=== PATIENT | female | born 1970 | race Two or more races ===

== ENCOUNTER 2025-02-23 10:05 | Inpatient (IN) | payer MEDICAID, OTHER ==
[~2025-02-23] VITALS: Ht 172.7 cm; Wt 68.9 kg
--- NOTE | 2025-02-23 10:20 | ECG ---
[facility] Test Date: 2025-02-23 Test Time: 10:19:53 Pat Name: MIL MIRANDA Department: ED Room: 0251 Gender: F Civil Estimator: GP : 1970 Requested By: SHAHID GALARZA Order Number: [id number] Reading MD: Emiliano Caballero Measurements Intervals [place] Rate: 85 P: 26 [place]: 138 QRS: 19 QRSD: 95 T: 50 QT: 411 QTc: 489 Interpretive Statements Sinus rhythm Left atrial enlargement RSR' in V1 or V2, probably normal variant Borderline prolonged QT interval Electronically Signed On 02-25-2025 19:43:56 PST by Emiliano Caballero Please click the below link to view image of tracing.
--- NOTE | 2025-02-23 11:02 | ED.PDOC ---
GI ASSESSMENT HPI Comments 54y F who presents to the ED via EMS for chief complaint of abdominal pain. Pt states she has been having nausea and vomiting for the past 5 days. Pt states she has had nausea, vomiting, lightheadedness and generalized malaise. Pt states she feels like she is going to fall over from her weakness. Pt denies any sick contacts or any changes to diet. Pt otherwise has stable vitals in the ED. Pt denies any other symptoms at this time. Chief Complaint: Nausea/Vomiting Time Seen by MD: 10:58 Reviewed Notes: Medications, Allergies Allergies: Coded Allergies: NO KNOWN ALLERGIES (Unverified , 02/23/25) Information Source: Patient, Emergency Med Personnel Mode of Arrival: EMS Brought in by: EMS Timing: Days Duration: Since onset Prehospital treatment: Treatment (zofran) Quality: Aching Past Medical History PAST MEDICAL HISTORY: COPD, Depression Past Medical History (Other): low blood pressure Surgical History: Denies all surgeries BIOASSAYIST History: Denies all BIOASSAYIST Hx Family History Family History: Reviewed,noncontributory to illness Social History Smoker: Non-Smoker Alcohol: Denies ETOH Use Drugs: Denies Drug Use Lives In: Home Constitutional: reports: malaise, weakness; denies: chills, diaphoresis, fatigue, fever, sweats, others EENTM: denies: blurred vision, double vision, ear bleeding, ear discharge, ear drainage, ear pain, ear ringing, eye pain, eye redness, hearing loss, mouth pain, mouth swelling, nasal discharge, nose bleeding, nose congestion, nose pain, photophobia, tearing, throat pain, throat swelling, voice changes, others Respiratory: denies: cough, hemoptysis, orthopnea, SOB at rest, shortness of breath, SOB with excertion, stridor, wheezing, others Cardiovascular: denies: chest pain, dizzy spells, diaphoresis, Dyspnea on exer tion, edema, irregular heart beat, left arm pain, lightheadedness, palpitations, PND, syncope, others Gastrointestinal: reports: nausea, vomiting; denies: abdomen distended, abdominal pain, blood streaked bowels, constipated, diarrhea, dysphagia, difficulty swallowing, hematemesis, melena, poor appetite, poor fluid intake, rectal bleeding, rectal pain, others Genitourinary: denies: abnormal vagina bleeding, burning, dyspareunia, dysuria, flank pain, frequency, hematuria, incontinence, pain, , vagina discharge, urgency, others Neurological: denies: dizziness, fainting, headache, left sided numbness, left sided weakness, numbness, paresthesia, pre-existing deficit, right sided numbness, right sided weakness, seizure, speech problems, tingling, tremors, weakness, others Musculoskeletal: denies: back pain, gout, joint pain, joint swelling, muscle pain, muscle stiffness, neck pain, others Integumetry: denies: bruises, change in color, change in hair/nails, dryness, laceration, lesions, lumps, rash, wounds, others Allergic/Immunocompromised: denies: Difficulty Healing, Frequent Infections, Hives, Itching, others Hematologic/Lymphatic: denies: anemia, blood clots, easy bleeding, easy bruising, swollen glands, others Endocrine: denies: excessive hunger, excessive sweating, excessive thirst, excessive urination, flushing, intolerance to cold, intolerance to heat, unexplained weight gain, unexplained weight loss, others Psychiatric: denies: anxiety, bipolar disorder, depression, hopeless, panic disorder, schizophrenia, sleepless, suicidal, others All Other Systems: Reviewed and Negative Physical Exam General Appearance: No Apparent Distress, Normal HEENT: Normal ENT Inspection, Pharynx Normal, TMs Normal Neck: Full Range of Motion, Non-Tender, Normal, Normal Inspection Respiratory: Chest Non-Tender, Lungs Clear, No Accessory Muscle Use, No Respiratory Distress, Normal Breath Sounds Cardiovascular: No Edema, No JVD, No Murmur, No Gallop, Normal Peripheral Pulses, Regular Rate/Rhythm Breast Exam: Deferred Gastrointestinal: No Organomegaly, Non Tender, No Pulsatile Mass, Normal Bowel Sounds, Soft Genitalia: Deferred Pelvic: Deferred Rectal: Deferred Extremities: No calf tenderness, Normal capillary refill, Normal inspection, Normal range of motion, Non-tender, No pedal edema Musculoskeletal : Apperance: Normal Neurologic: Alert, product marketing director II-XII nml as Tested, No Motor Deficits, Normal Affect, Normal Mood, No Sensory Deficits Cerebellar Function: Normal Reflexes: Normal Skin: Dry, Normal Color, Warm Lymphatic: No Adenopathy EKG EKG : Pulse Rate (adult): 85 Cardiac Rhythm: NSR Comments No signs of ischemia, no STEMI. Was a procedure done? Was a procedure done?: No GI differential Dx Differential Diagnosis: Gastritis/PUD, Gastroenteritis, Pancreatitis, UTI, Dehydration, Food Poisoning, Bacterial, Viral X-Ray, Labs, Meds, VS Vital Signs Date Time Temp Pulse Resp B/P (MAP) Pulse Ox O2 Delivery O2 Flow Rate FiO2 02/23/25 10:54 97.9 89 18 118/80 (93) 92 97.9 02/23/25 10:19 85 02/23/25 10:08 98.4 88 16 155/75 92 98.4 Lab Test 02/23/25 12:29 02/23/25 12:18 02/23/25 11:13 Range/Units Urine Color Yellow Yellow Urine Clarity Clear Clear Urine pH 6.0 5.0-9.0 Urine Specific [place] 1.023 1.001-1.035 Urine Protein Trace H Negative Urine Ketones 1+ H Negative Urine Blood 1+ H Negative /uL Urine Nitrite Negative Negative Urine Bilirubin Negative Negative Urine Urobilinogen 2 H Negative mg/dL Urine Leukocyte Esterase 1+ Negative /uL Urine RBC 8 0 - 4 /hpf Urine Microscopic WBC 5 0-5 /HPF Urine Squamous Epithelial Cells Few <5 /hpf Urine Bacteria None seen None Seen /hpf Urine Mucus Few None Seen Urine Yeast (Budding) Occasional None Seen /hpf Urine Glucose Normal Normal mg/dL Troponin I High Sensitivity 20 27 </=34 ng/L White Blood Count 11.4 H 4.4-10.8 10^3/uL Red Blood Count 4.60 4.0-5.20 10^6/uL Hemoglobin 12.5 12.2-16.2 g/dL Hematocrit 37.2 36.0-46.0 % Mean Corpuscular Volume 81.0 80.0-100.0 fL Mean Corpuscular Hemoglobin 27.2 L 28.0-32.0 pg Mean Corpuscular Hemoglobin Concent 33.6 32.0-36.0 g/dL Red Cell Distribution Width 13.4 11.8-14.3 % Platelet Count 283 140-450 10^3/uL Mean Platelet Volume 8.3 6.9-10.8 fL Neutrophils (%) (Auto) 79.5 37.0-80.0 % Lymphocytes (%) (Auto) 8.0 L 10.0-50.0 % Monocytes (%) (Auto) 11.1 0.0-12.0 % Eosinophils (%) (Auto) 1.0 0.0-7.0 % Basophils (%) (Auto) 0.4 0.0-2.0 % Neutrophils # (Auto) 9.1 H 1.6-8.6 10 ^3/uL Lymphocytes # (Auto) 0.9 0.4-5.4 10 ^3/uL Monocytes # (Auto) 1.3 0-1.3 10 ^3/uL Eosinophils # (Auto) 0.1 0-0.8 10 ^3/uL Basophils # (Auto) 0 0-0.2 10 ^3/uL Nucleated Red Blood Cells 0.0 % Sodium Level 139 136-145 mmol/L Potassium Level 3.4 L 3.5-5.1 mmol/L Chloride Level 99 98-107 mmol/L Carbon Dioxide Level 32 H 20-31 mmol/L Anion Gap 8 5-15 Blood Urea Nitrogen 8 L 9-23 mg/dL Creatinine 0.90 0.550-1.02 mg/dL Glomerular Filtration Rate Calc 76 >90 mL/min BUN/Creatinine Ratio 8.9 L 10.0-20.0 Serum Glucose 97 74-106 mg/dL Calcium Level 9.4 8.7-10.4 mg/dL B-Type Natriuretic Peptide 46.15 0-100 pg/mL Lipase 23 12-53 U/L [place] [address] Ph: [phone] DIAGNOSTIC IMAGING Diagnostic Imaging Report : [id number] Signed PATIENT: LAURA MIRANDA ACCT: [id number] UNIT: [id number] : 1970 LOC: ER ROOM / BED: / AGE / SEX: 54 / F ADM STATUS: REG ER SERVICE 1101 ORDERING PHYSICIAN: SHAHID GALARZA MD PROCEDURE(s): CXR1 - CHEST XRAY 1 VIEW REASON: chest pain ORDER NUMBER(s): [id number], ACCESSION NUMBER(s): [id number] CLINICAL HISTORY: Chest pain. TECHNIQUE: Two frontal views of the chest were obtained. COMPARISON: None available. FINDINGS: PLEURA/LUNGS: Questionable trace bilateral pleural effusions associated with subsegmental atelectasis at the lung bases. No pneumothorax. No consolidation or belinda pulmonary edema. MEDIASTINUM/OTHER: Normal heart size and mediastinal contours. BONES: No acute osseous abnormality. Osseous structures are demineralized. IMPRESSION: Questionable trace bilateral pleural effusions associated with subsegmental atelectasis at the lung bases. ATED BY: HE MCNEAL MD DICTATED DATE/TIME: 02/23/25 1146 SIGNED BY: HE MCNEAL MD SIGNED DATE/TIME: 02/23/25 1146 CC: X-Ray, Labs, Meds, VS Comment Patient presents with a constellation of symptoms with positive UA that likely represents acute pyelonephritis. Given fluid bolus and ceftriaxone based on previously available culture data. Patient is at high risk for decompensation and will be admitted for continued IV antibiotics, observation, and culture results. Considered nephrolithiasis, obstructed stone, atypical appendicitis, AAA, aortic dissection, genital torsion, cholecystitis, but consider these to be less likely based on history/physical/evaluation as above. Images Reviewed?: Images reviewed and evaluated by me Time of 1ST Reevaluation: 11:30 Reevaluation 1ST: Unchanged Time of 2ND Reevaluation: 14:52 Reevaluation 2ND: Improved Patient Education/Counseling: Diagnosis, Treatment Family Education/Counseling: No Family Present SEPSIS Sepsis Screen Date sepsis recognized/suspect: Feb 23, 2025 Time Sepsis recognized/suspect: 1008 Recent Procedure: No On Antibiotic Therapy: No Respiratory Rate >20: No Heart Rate >90: No Temp<36 C (96.8 F) or >38.3 C: No SBP <90 or MAP <65 mmHG: No New Acute Mental Status Change: No Is the patient on CPAP, BIPAP,: No Physician Orders Chest Xray 1 View (02/23/25 11:01) Electrocardigram (02/23/25 11:01) Troponin-I Hs (02/23/25 14:01) Electrocardigram (02/23/25 12:01) Electrocardigram (02/23/25 14:01) Vital Signs Date Time Temp Pulse Resp B/P (MAP) Pulse Ox O2 Delivery O2 Flow Rate FiO2 02/23/25 10:54 97.9 89 18 118/80 (93) 92 97.9 02/23/25 10:19 85 12/9/25 10:08 98.4 88 16 155/75 92 98.4 Laboratory Tests Test 02/23/25 11:13 White Blood Count 11.4 10^3/uL (4.4-10.8) H Departure 1 Departure Time of Disposition: 14:52 Impression: Primary Impression: Pyelonephritis Disposition: 02 SHORT TERM HOSPITAL Admit to: Tele Condition: Stable Critical Care Note Critical Care Time?: Yes (35 min-critical care time only) Stability Stability form required: No Heart Score Heart Score: Heart Score Response (Comments) Value History N/A 0 EKG N/A 0 Age N/A 0 Risk Factors N/A 0 Troponin N/A 0 Total 0 I personally scribed for SHAHID GALARZA MD ([facility]) on 02/23/25 at 11:02. Electronically submitted by Leandra Rodarte ([facility] [employer] I personally scribed for SHAHID GALARZA MD ([email or web address]) on 02/23/25 at 13:17. Electronically submitted by Leandra Rodarte ([facility]). SHAHID GALARZA MD Feb 23, 2025 11:02
[2025-02-23 11:34] LABS: Hematocrit 37.2 % (36.0-46.0); Hemoglobin 12.5 g/dL (12.2-16.2); Mean Corpuscular Hemoglobin 27.2 pg (28.0-32.0); Mean Corpuscular Volume 81.0 fL (80.0-100.0); Nucleated Red Blood Cells % 0.0 %
[2025-02-23 11:49] LABS: Chloride 99 mmol/L (98-107); Sodium 139 mmol/L (136-145)
--- NOTE | 2025-02-23 11:49 | DVH ---
CLINICAL HISTORY: Chest pain. TECHNIQUE: Two frontal views of the chest were obtained. COMPARISON: None available. FINDINGS: PLEURA/LUNGS: Questionable trace bilateral pleural effusions associated with subsegmental atelectasis at the lung bases. No pneumothorax. No consolidation or belinda pulmonary edema. MEDIASTINUM/OTHER: Normal heart size and mediastinal contours. BONES: No acute osseous abnormality. Osseous structures are demineralized. IMPRESSION: Questionable trace bilateral pleural effusions associated with subsegmental atelectasis at the lung bases.
[2025-02-23 11:50] LABS: Anion Gap 8 (5-15)
[2025-02-23 11:51] LABS: Calcium 9.4 mg/dL (8.7-10.4)
[2025-02-23 11:53] LABS: Carbon Dioxide 32 mmol/L (20-31); Potassium 3.4 mmol/L (3.5-5.1)
[2025-02-23 11:56] LABS: BUN/Creatinine Ratio 8.9 (10.0-20.0); Glucose 97 mg/dL (74-106)
[2025-02-23 11:58] LABS: Blood Urea Nitrogen 8 mg/dL (9-23)
[2025-02-23 13:43] LABS: Urine Budding Yeast OCCASIONAL /hpf (None Seen); Urine Protein, UAD TRACE (Negative)
[2025-02-23] MEDS: SODIUM CHLORIDE 0.9% 1,000 ML IV SCH (15:45)
[2025-02-23] MEDS ORDERED: ONDANSETRON HCL 4 MG/2 ML VIAL IV PRN ×2 (15:45)
[2025-02-23] MEDS ORDERED: ACETAMINOPHEN 325 MG TAB PO PRN (15:45)
[2025-02-23] MEDS: SODIUM CHLORIDE 0.9% 1,000 ML IV ONE (15:52)
[2025-02-23 16:26] LABS: Alanine Aminotransferase 11.0 U/L (7-40); Albumin 4.4 g/dL (3.2-4.8); Alkaline Phosphatase 72.0 U/L (46-116); Bilirubin, Direct 0.1 mg/dL (<0.3); Bilirubin, Total 0.5 mg/dL (0.2-1.0)
--- NOTE | 2025-02-23 16:43 | DVHHP2 ---
History of Present Illness History of Present Illness This is a 54-year-old female with past medical history of depression who presents with five days of epigastric abdominal pain associated with nausea and multiple episodes of non-bloody clear vomiting, last episode yesterday. She reports lightheadedness and generalized weakness without syncope. No sick contacts or dietary changes. She had a prior hysterectomy and in outside meds reconciliation aripiprazole showed up, and occasionally takes tramadol for headaches. She denies smoking, alcohol, or drug use. On arrival, she was hemodynamically stable except for mildly elevated BP that improved PMHx Depression, COPD? PSHx Hysterectomy. Social History Denies tobacco, alcohol, and drug use. Lives at home. ROS Negative except as mentioned in HPI. CBC: Leukocytosis 11.4 with neutrophilia. CMP: Hypokalemia. Lipase negative, troponin negative, BNP negative. CXR: Questionable left pleural effusion vs. breast tissue artifact needs further imaging. CT abdomen/pelvis and chest ultrasound pending. Review of Systems Allergies: Coded Allergies: NO KNOWN ALLERGIES (Unverified , 02/23/25) Medications Current Medications Medications Dose Ordered Sig/Lisa Route Start Time Stop Time Status Last Admin Dose Admin Sodium Chloride 1,000 ml @ 60 mls/hr [id number] IV 02/23/25 15:45 Acetaminophen 650 mg Q6HP PRN PO 02/23/25 15:45 Acetaminophen/ Hydrocodone Bitart 1 tab Q4HP PRN PO 02/23/25 15:45 Ondansetron HCl 4 mg Q4HP PRN IV 02/23/25 15:45 UNV Enoxaparin Sodium 40 mg DAILY SC 02/24/25 10:00 Ceftriaxone Sodium 50 ml @ 100 mls/hr DAILY@09 IV 02/24/25 09:00 Ondansetron HCl 4 mg Q4HPRN PRN IV 02/23/25 15:45 Azithromycin 250 ml @ 125 mls/hr DAILY IV 02/23/25 15:45 Exam Vital Signs Vital Signs Date Time Temp Pulse Resp B/P (MAP) Pulse Ox O2 Delivery O2 Flow Rate FiO2 02/23/25 14:53 85 02/23/25 10:54 97.9 18 118/80 (93) 92 97.9 Exam General: Alert, cooperative, no acute distress. Lungs: Clear to auscultation bilaterally, no wheezes, crackles, or increased work of breathing. Cardiac: Regular rate and rhythm, no murmurs. Abdomen: Soft, nondistended, epigastric tenderness, no guarding or rebound. Extremities: No edema or deformities. Neuro: A&O3, nonfocal exam. Labs/Xrays Labs Test 02/23/25 15:07 02/23/25 14:20 02/23/25 12:29 02/23/25 11:13 Range/Units Lactic Acid Level 1.0 0.4-2.0 mmol/L Troponin I High Sensitivity 24 </=34 ng/L Urine Color Yellow Yellow Urine Clarity Clear Clear Urine pH 6.0 5.0-9.0 Urine Specific [place] 1.023 1.001-1.035 Urine Protein Trace H Negative Urine Ketones 1+ H Negative Urine Blood 1+ H Negative /uL Urine Nitrite Negative Negative Urine Bilirubin Negative Negative Urine Urobilinogen 2 H Negative mg/dL Urine Leukocyte Esterase 1+ Negative /uL Urine RBC 8 0 - 4 /hpf Urine Microscopic WBC 5 0-5 /HPF Urine Squamous Epithelial Cells Few <5 /hpf Urine Bacteria None seen None Seen /hpf Urine Mucus Few None Seen Urine Yeast (Budding) Occasional None Seen /hpf Urine Glucose Normal Normal mg/dL White Blood Count 11.4 H 4.4-10.8 10^3/uL Red Blood Count 4.60 4.0-5.20 10^6/uL Hemoglobin 12.5 12.2-16.2 g/dL Hematocrit 37.2 36.0-46.0 % Mean Corpuscular Volume 81.0 80.0-100.0 fL Mean Corpuscular Hemoglobin 27.2 L 28.0-32.0 pg Mean Corpuscular Hemoglobin Concent 33.6 32.0-36.0 g/dL Red Cell Distribution Width 13.4 11.8-14.3 % Platelet Count 283 140-450 10^3/uL Mean Platelet Volume 8.3 6.9-10.8 fL Neutrophils (%) (Auto) 79.5 37.0-80.0 % Lymphocytes (%) (Auto) 8.0 L 10.0-50.0 % Monocytes (%) (Auto) 11.1 0.0-12.0 % Eosinophils (%) (Auto) 1.0 0.0-7.0 % Basophils (%) (Auto) 0.4 0.0-2.0 % Neutrophils # (Auto) 9.1 H 1.6-8.6 10 ^3/uL Lymphocytes # (Auto) 0.9 0.4-5.4 10 ^3/uL Monocytes # (Auto) 1.3 0-1.3 10 ^3/uL Eosinophils # (Auto) 0.1 0-0.8 10 ^3/uL Basophils # (Auto) 0 0-0.2 10 ^3/uL Nucleated Red Blood Cells 0.0 % Sodium Level 139 136-145 mmol/L Potassium Level 3.4 L 3.5-5.1 mmol/L Chloride Level 99 98-107 mmol/L Carbon Dioxide Level 32 H 20-31 mmol/L Anion Gap 8 5-15 Blood Urea Nitrogen 8 L 9-23 mg/dL Creatinine 0.90 0.550-1.02 mg/dL Glomerular Filtration Rate Calc 76 >90 mL/min BUN/Creatinine Ratio 8.9 L 10.0-20.0 Serum Glucose 97 74-106 mg/dL Hemoglobin A1c 5.0 <5.7 % A1C Calcium Level 9.4 8.7-10.4 mg/dL B-Type Natriuretic Peptide 46.15 0-100 pg/mL Lipase 23 12-53 U/L SEPSIS Sepsis Screen Date sepsis recognized/suspect: Feb 23, 2025 Time Sepsis recognized/suspect: 1008 Recent Procedure: No On Antibiotic Therapy: No Respiratory Rate >20: No Heart Rate >90: No Temp<36 C (96.8 F) or >38.3 C: No SBP <90 or MAP <65 mmHG: No New Acute Mental Status Change: No Is the patient on CPAP, BIPAP,: No Physician Orders Chest Xray 1 View (02/23/25 11:01) Electrocardigram (02/23/25 11:01) Electrocardigram (02/23/25 12:01) Electrocardigram (02/23/25 14:01) Blood Culture (02/23/25 14:50) Urine Bacterial Culture (02/23/25 14:50) Admit (02/23/25 15:36) Code Status (02/23/25 15:36) Vital Signs .PER UNIT PROTOCOL (02/23/25 15:36) Review Orders With Adm. (02/23/25 15:36) Npo (Nothing By Mouth) Diet (02/23/25 Dinner) Sodium Chloride 0.9% (02/23/25 15:45) Acetaminophen Tablet (Tylenol Tablet) (02/23/25 15:45) Notify Md Of Changes From Base (02/23/25 15:36) Advance Directive (02/23/25 15:36) Patient Condition (02/23/25 15:36) Allergies (02/23/25 15:36) Hydrocodone-Acet 5/325mg Tab ([place] 5/32 (02/23/25 15:45) Drug Screen (02/23/25 15:36) Ambulate Every 4hours Q4H (02/23/25 15:36) Enoxaparin Sodium (Lovenox) (02/24/25 10:00) Oxygen By Nasal Cannula (02/23/25 15:36) Stat Ekg For Chest Pain (02/23/25 15:36) Notify Md Of Changes From Base (02/23/25 15:36) Educational Psychologist For 24 Hours (02/23/25 15:36) Emergency Dysrhythmia Protocol (02/23/25 15:36) Rhythm Strips Once Every Shift (02/23/25 15:36) Ceftriaxone 1gm/50ml (Rocephin) (02/24/25 09:00) Hepatic Panel (02/23/25 15:36) Ondansetron Hcl (Zofran) (02/23/25 15:45) Azithromycin 500mg/250ml (Zithromax 500m (02/23/25 15:45) Rapid Influenza A&B (02/23/25 15:36) Covid19 Antigen Elisabet (02/23/25 ) Chest Ultrasound (02/23/25 15:36) Ct Ab Pel With Iv Con Only (02/23/25 15:36) Potassium Er Tablet (Klor-Con Tablet) (02/23/25 16:45) Vital Signs Date Time Temp Pulse Resp B/P (MAP) Pulse Ox O2 Delivery O2 Flow Rate FiO2 02/23/25 14:53 85 02/23/25 10:54 97.9 89 18 118/80 (93) 92 97.9 02/23/25 10:19 85 02/23/25 10:08 98.4 88 16 155/75 92 98.4 Laboratory Tests Test 02/23/25 11:13 02/23/25 15:07 White Blood Count 11.4 10^3/uL (4.4-10.8) H Lactic Acid Level 1.0 mmol/L (0.4-2.0) Medications Medications Dose Ordered Sig/Lisa Route Start Time Stop Time Status Last Admin Dose Admin Ceftriaxone Sodium 50 ml @ 100 mls/hr ONCE ONCE IV 02/23/25 15:00 02/23/25 15:29 DC 02/23/25 15:52 100 MLS/HR Sodium Chloride 1,000 ml @ 1,000 mls/hr Q1H ONCE IV 02/23/25 15:00 02/23/25 15:59 DC 02/23/25 15:52 1,000 MLS/HR Assessment/Plan Assessment/Plan # Acute intractable abdominal pain # Acute gastritis Her epigastric pain and vomiting with leukocytosis raise concern for an upper GI inflammatory process, and the presentation is consistent with acute gastritis while ruling out more serious pathology. NPO for now, transition to clear liquids once CT is completed. Continue IV fluids, antiemetics, pain meds and PPI. Monitor abdominal exam and repeat labs. # Hypokalemia Likely secondary to vomiting and decreased oral intake. Replace potassium and recheck BMP in the morning; continue telemetry while repleting. # Rule out pneumonia gram+/gram neg # Possible left pleural effusion Empiric ceftriaxone and azithromycin were started given leukocytosis and to cover for potential atypical until imaging clarifies. May be reactive due to dehydration or infectious/inflammatory abdominal pathology. Trend CBC, maintain antibiotics until CT abdomen and ultrasound define the source. CXR suggests a left-sided opacity that may represent effusion versus breast tissue artifact, and she has no respiratory symptoms. Proceed with chest ultrasound for confirmation; no diuresis indicated given clear lungs and normal BNP. # Depression Stable Case discussed with Dr Valdivia Full code Plan discussed with: Patient, Other (rn) My Orders Orders - FORTUNATO TURCIOS RESIDENT Procedure Category Date Status Time Admit ADMIT 02/23/25 Transmitted 15:36 Code Status CODE 02/23/25 Transmitted 15:36 Vital Signs ANA 02/23/25 In Process 15:36 Review Orders With ANA 02/23/25 In Process . 15:36 Npo (Nothing By DIET 02/23/25 Transmitted Mouth) Diet Dinner Sodium Chloride 0.9% PHA 12/9/25 In Process 15:45 Acetaminophen Tablet PHA 02/23/25 In Process (Tylenol Tablet) 15:45 Notify Md Of Changes [facility] 02/23/25 In Process From Base 15:36 Advance Directive [facility] 02/23/25 In Process 15:36 Patient Condition ORDERS 02/23/25 Transmitted 15:36 Allergies [facility] 02/23/25 In Process 15:36 Hydrocodone-Acet PHA 02/23/25 In Process 5/325mg Tab ([place] 15:45 Drug Screen LAB 02/23/25 Logged 15:36 Ambulate Every 4hours [facility] 02/23/25 In Process 15:36 Enoxaparin Sodium PHA 02/24/25 In Process (Lovenox) 10:00 Oxygen By Nasal RT 02/23/25 Transmitted Cannula 15:36 Stat Ekg For Chest [facility] 02/23/25 In Process Pain 15:36 Notify Md Of Changes [facility] 02/23/25 In Process From Base 15:36 Educational Psychologist For [facility] 02/23/25 In Process 24 Hours 15:36 Emergency Dysrhythmia [facility] 02/23/25 In Process Protocol 15:36 Rhythm Strips Once [facility] 02/23/25 In Process Every Shift 15:36 Ceftriaxone 1gm/50ml PHA 02/24/25 In Process (Rocephin) 09:00 Hepatic Panel LAB 02/23/25 In Process 15:[address] [facility] 02/23/25 In Process (Zofran) 15:45 Azithromycin PHA 02/23/25 In Process 500mg/250ml 15:45 Rapid Influenza A&B LAB 02/23/25 Logged 15:36 Covid19 Antigen Elisabet LAB 02/23/25 Logged Chest Ultrasound US 02/23/25 Taken 15:36 Ct Ab Pel With Iv Con CT 02/23/25 Logged Only 15:36 Potassium Er Tablet PHA 02/23/25 Logged (Klor-Con Tablet) 16:45 Date of Service: Feb 23, 2025 Billing Provider: TRACEE VALDIVIA MD Common Visit Codes: [id number] INP/OBS CARE (HIGH) Secondary Visit Codes: [id number] CARE PLAN 30 MINUTES FORTUNATO TURCIOS RESIDENT Feb 23, 2025 16:43
[2025-02-23 16:44] LABS: Total Protein 8.2 g/dL (5.7-8.2)
--- NOTE | 2025-02-23 17:00 | DVH ---
US CHEST ULTRASOUND COMPARISON: XY CHEST XRAY 1 VIEW on DOS: 02/23/25 INDICATION: left pleural effusion TECHNIQUE: Targeted ultrasound exam of the bilateral chest was performed. FINDINGS: Trace bilateral pleural effusions. IMPRESSION: Trace bilateral pleural effusions.
[2025-02-23] MEDS: IOHEXOL 300 MG/ML 100ML BOTTLE IJ ONE (20:18)
[2025-02-23] MEDS: AZITHROMYCIN 500MG/250ML 250 ML IV SCH (20:51)
[2025-02-23] MEDS: PANTOPRAZOLE 40 MG/10 ML VIAL INJ IV ONE (20:52)
[2025-02-23] MEDS: POTASSIUM CHL 20 Meq TABLET PO ONE (20:52)
[2025-02-23 21:25] LABS: Amphetamine Screen, Urine Neg (NEGATIVE); Barbiturate Scree,Urine Neg (NEGATIVE); Benzodiazephine Screen, Urine Neg (NEGATIVE); Cannabinoid Screen, Urine Neg (NEGATIVE); Cocaine Screen, Urine Neg (NEGATIVE); Opiate Scree,Urine Neg (NEGATIVE); Phencyclidine Screen, Urine Neg (NEGATIVE)
[2025-02-24 06:14] LABS: Nucleated Red Blood Cells % 0.2 %
[2025-02-24 06:18] LABS: Hematocrit 37.5 % (36.0-46.0); Hemoglobin 12.7 g/dL (12.2-16.2); Mean Corpuscular Hemoglobin 27.4 pg (28.0-32.0); Mean Corpuscular Volume 80.9 fL (80.0-100.0)
[2025-02-24 06:28] LABS: INR 1.0 (0.9-1.15); Partial Thromboplastin Time 32.0 SEC (24.5-34.5); Prothrombin Time 10.6 sec (9.3-11.8)
[2025-02-24 06:37] LABS: Alanine Aminotransferase 12 U/L (7-40); Albumin 4.5 g/dL (3.2-4.8); Alkaline Phosphatase 74 U/L (46-116); Anion Gap 11 (5-15); Calcium 9.6 mg/dL (8.7-10.4); Carbon Dioxide 28 mmol/L (20-31); Chloride 100 mmol/L (98-107); Glucose 82 mg/dL (74-106); Magnesium 2.1 mg/dL (1.6-2.6); Potassium 3.7 mmol/L (3.5-5.1); Sodium 139 mmol/L (136-145); Triglycerides 64 mg/dL (< 150)
[2025-02-24 06:38] LABS: Bilirubin, Total 0.5 mg/dL (0.2-1.0); Cholesterol 159 mg/dL (< 200)
[2025-02-24 06:42] LABS: BUN/Creatinine Ratio 6.6 (10.0-20.0); Blood Urea Nitrogen < 5 mg/dL (9-23); Total Protein 8.3 g/dL (5.7-8.2)
[2025-02-24 06:43] LABS: HDL Cholesterol 69 mg/dL (40-59)
[2025-02-24] MEDS: SUCRALFATE 1 GM TAB PO SCH (10:40)
[2025-02-24] MEDS: ENOXAPARIN SOD 40 MG/0.4 ML SYRINGE SC SCH (10:42)
[2025-02-24] MEDS: PANTOPRAZOLE 40 MG/10 ML VIAL INJ IV SCH (10:54)
[2025-02-24] MEDS: HYDROcodone-ACET 5/325MG TAB PO PRN (10:54)
--- NOTE | 2025-02-24 11:51 | DVHPNRES ---
Progress Note Date Seen: Feb 24, 2025 Resident Creating Document: FELECIA CALLAHAN RESIDENT Medical Necessity Reason Pt with a Central, PICC or Fol: No Subjective Review of Systems This is a 54-year-old female with past medical history of depression who presents with five days of epigastric abdominal pain associated with nausea and multiple episodes of non-bloody clear vomiting, last episode yesterday. Also reported intermittent non bloody iarrhea. She reports lightheadedness and generalized weakness without syncope. No sick contacts or dietary changes. She had a prior hysterectomy and in outside meds reconciliation aripiprazole showed up, and occasionally takes tramadol for headaches. She denies smoking, alcohol, or drug use. CBC: Leukocytosis 11.4 with neutrophilia, potassium 3.4, lipase with a normal limit, urinalysis revealed leukocyte esterase 2+, WBC 5. UDS negative, TSH 1.14. Negative for COVID-19 and influenza. chest x-ray trace bilateral pleural effusion. Ultrasound of the chest trace bilateral pleural effusion. PMH-depression PSH- hysterectomy Allergy- NKDA Personal History/ Social History- Denies tobacco, alcohol, and drug use. Lives at home with mom NILS Cardiovascular- deny acute chest pain or shortness of breath or cough or palpitation Respiratory denies cough or short of breath or wheezing Gastrointestinal-A abdominal pain, nausea, vomiting, loose motion Musculoskeletal-denies acute joint swelling or tenderness or redness Neurological- denies acute dysarthria, dysphagia, change in vision Psychiatry- denies depression or SI or HI Skin- denies acute rash or purpura Patient was seen today Labs and chart reviewed CT abdominal pelvis-No acute abdominal or pelvic finding. Patient on pantoprazole and sucralfate Continue ceftriaxone Objective vital signs Vital Sign Date Time Temp Pulse Resp B/P (MAP) Pulse Ox O2 Delivery O2 Flow Rate FiO2 02/24/25 10:46 98.0 72 20 132/74 (93) 99 98.0 Total Intake and Output 02/23/25 02/23/25 02/24/25 15:00 23:00 07:00 Intake Total 1050 ml Balance 1050 ml medications Current Medications Medications Dose Ordered Sig/Lisa Route Start Time Stop Time Status Last Admin Dose Admin Sodium Chloride 1,000 ml @ 60 mls/hr [id number] IV 02/23/25 15:45 02/24/25 10:55 60 MLS/HR Acetaminophen 650 mg Q6HP PRN PO 02/23/25 15:45 Acetaminophen/ Hydrocodone Bitart 1 tab Q4HP PRN PO 02/23/25 15:45 02/24/25 10:54 1 TAB Ondansetron HCl 4 mg Q4HP PRN IV 02/23/25 15:45 UNV Enoxaparin Sodium 40 mg DAILY SC 02/24/25 10:00 02/24/25 10:42 40 MG Ceftriaxone Sodium 50 ml @ 100 mls/hr DAILY@09 IV 02/24/25 09:00 02/24/25 11:03 100 MLS/HR Ondansetron HCl 4 mg Q4HPRN PRN IV 02/23/25 15:45 Pantoprazole Sodium 40 mg BID IV 02/24/25 10:00 02/24/25 10:54 40 MG Sucralfate 1 gm QIDACHS PO 02/24/25 08:30 02/24/25 10:40 1 GM Examination General examination- no acute distress HEENT- PEERLA, no acute nasal discharge Cardiovascular- S1-S2 audible, rate and rhythm regular, no murmur Respiratory- CTAB, no wheeze or rhonchi Gastrointestinal-epigastric tenderness positive, bowel sound+. Nondistended Musculoskeletal-no acute joint swelling or tenderness or redness Lower extremity- no leg edema Neurological- cranial nerves intact, no acute dysarthria or dysphagia Psychiatry- denies depression or SI or HI Skin- no acute rash or purpura laboratory and microbiology Laboratory Tests 02/24/25 04:58 Test 02/24/25 04:58 Range/Units Serum Glucose 82 74-106 mg/dL Problem List/Assessment/Plan Problem List/Assessment/Plan Assessment and plan # intractable abdominal pain with nausea and vomiting likely due to acute gastroenteritis # suspected acute gastritis - CT abdominal pelvis-No acute abdominal or pelvic finding. -continue pantoprazole as prescribed -on sucralfate -Completed EKG which showed no ST elevation. # UTI -continue ceftriaxone as prescribed Pending urine culture -continue IV fluid as prescribed # depression -resumed home medication # trace bilateral pleural effusion -continue monitoring clinically Goals of care, Code status ; discussed with >15 minutes PUD prophylaxis: Pantoprazole DVT prophylaxis: Lovenox Plan discussed with Dr. Valdivia , nursing staff, Total time spent on patient evaluation, chart review, assessment and plan, discussion discussion >35 minutes Plan discussed with: Patient, Other (RN) My Orders My Orders Orders - FELECIA CALLAHAN Procedure Category Date Status Time Sucralfate Tab PHA 02/24/25 In Process (Carafate Tab) 08:30 Visit Coding STANDARD RES Billing Provider: TRACEE VALDIVIA MD Date of Service if different f: Feb 24, 2025 Common Visit Codes: [id number] INP/OBS CARE(HIGH) FELECIA CALLAHAN RESIDENT Feb 24, 2025 11:49 ELIEZER DESAI Feb 24, 2025 22:44
[2025-02-24 12:34] LABS: COVID19 ANTIGEN SOFIA FIA NEGATIVE (NEGATIVE)
--- NOTE | 2025-02-24 17:20 | DVH ---
EXAM: CT CT AB PEL WITH IV CON ONLY History: ABDOMINAL PAIN AND LEUKOCYTOSIS, r/o apendictis COMPARISON: None TECHNIQUE: Multidetector spiral CT of the abdomen and pelvis was performed from lung bases to pubic symphysis. Intravenous contrast was administered during this examination. Portal venous imaging was obtained. Axial, coronal and sagittal multiplanar reformats were performed by the technologist on a separate workstation. Radiation Dose : 1. Abdomen/Pelvis: CTDIvol 7.06mGy, DLP 341.06 mGy*cm. CONTRAST: Type of contrast: Omnipaque 350 Contrast injected: 100 ml FINDINGS: Lung Bases: No acute or significant lung base finding. Normal heart size. No pleural or pericardial effusion. Liver: The liver is normal in size. No focal lesions. Normal hepatic vascular enhancement. Gallbladder and Biliary Tree: Unremarkable Spleen: Unremarkable Pancreas: The pancreas is normal in appearance without focal lesions or abnormal enhancement. Adrenal Glands: Unremarkable Kidneys: No hydronephrosis. Bladder: Unremarkable Bowel: The stomach is grossly normal in appearance. Small bowel and colon are normal in caliber and distribution. Normal appendix is visualized in the right lower quadrant without findings of appendicitis. Ascites: Absent Lymphadenopathy: No mesenteric, retroperitoneal or periportal lymphadenopathy. Abdominal Wall and Mesentery: Unremarkable. Vasculature: The visualized abdominal aorta is normal in size and caliber. Abdominal and pelvic vessels demonstrate normal enhancement. Pelvic Organs: Unremarkable Musculoskeletal: No aggressive focal bony lesions, acute fractures or dislocation. IMPRESSION: No acute abdominal or pelvic finding. Radiation optimization: All CT scans at this facility use at least one of these dose optimization techniques: automated exposure control mA and/or kV adjustment per patient size (includes targeted exams where dose is matched to clinical indication) or iterative reconstruction.
[2025-02-24 20:00] VITALS: PULSE 86; RESP 18; O2SAT 95
[2025-02-24 21:00] VITALS: BP 134/90; PULSE 86; RESP 18; TEMP 98.6; O2SAT 95
[2025-02-24 21:10] VITALS: PULSE 86; RESP 18; O2SAT 95
[2025-02-25 01:00] VITALS: BP 113/74; PULSE 84; RESP 18; TEMP 98.6; O2SAT 97
[2025-02-25 05:00] VITALS: BP 106/73; PULSE 78; RESP 18; TEMP 98.2; O2SAT 97
[2025-02-25 05:54] LABS: Hematocrit 33.0 % (36.0-46.0); Hemoglobin 11.0 g/dL (12.2-16.2); Mean Corpuscular Hemoglobin 27.0 pg (28.0-32.0); Mean Corpuscular Volume 80.7 fL (80.0-100.0); Nucleated Red Blood Cells % 0.0 %
[2025-02-25 06:00] LABS: Chloride 104 mmol/L (98-107); Sodium 141 mmol/L (136-145)
[2025-02-25 06:01] LABS: Anion Gap 10 (5-15); Calcium 8.9 mg/dL (8.7-10.4); Carbon Dioxide 27 mmol/L (20-31)
[2025-02-25 06:06] LABS: BUN/Creatinine Ratio 14.9 (10.0-20.0); Blood Urea Nitrogen 10 mg/dL (9-23); Glucose 84 mg/dL (74-106)
[2025-02-25 06:16] LABS: Potassium 3.4 mmol/L (3.5-5.1)
[2025-02-25] MEDS: POTASSIUM EFFERVESENT TAB 25 MEQ PO ONE (08:36)
[2025-02-25 08:57] VITALS: BP 117/77; PULSE 85; RESP 16; TEMP 98.6; O2SAT 94
--- NOTE | 2025-02-25 12:06 | DVH ---
INDICATION: NECK PAIN COMPARISON: None TECHNIQUE: 3 views of the cervical spine were obtained. FINDINGS: The cervical vertebral alignment is normal. The predental space is normal. Multilevel degenerative changes most pronounced C4-C5 through C6-C7 causing moderate neural foraminal and spinal canal stenosis. No acute fracture, vertebral compression deformity or aggressive osseous lesions. The imaged lung apices are unremarkable. IMPRESSION: No acute fracture.
[2025-02-25] MEDS ORDERED: PANT40T PO (12:35)
[2025-02-25] MEDS ORDERED: SUCR1TAB31 PO (12:35)
[2025-02-25] MEDS ORDERED: DICY10CA PO (12:35)
[2025-02-25 13:00] VITALS: BP 116/82; PULSE 91; RESP 17; TEMP 98.1; O2SAT 95
[2025-02-25 13:42] VITALS: BP 116/82; PULSE 91; RESP 17; TEMP 98.1; O2SAT 95
--- NOTE | 2025-02-25 14:57 | DVHDSRES ---
Discharge Summary Date of Admission Resident Creating Document: FELECIA CALLAHAN RESIDENT Feb 23, 2025 at 15:36 Date of Discharge: Feb 25, 2025 Admitting Diagnosis Intractable abdominal pain likely due to gastroenteritis Labs/Diagnostic Data: Laboratory Results Test 02/25/25 05:14 02/24/25 11:42 02/24/25 04:58 02/23/25 15:07 White Blood Count 8.1 10^3/uL (4.4-10.8) Red Blood Count 4.08 10^6/uL (4.0-5.20) Hemoglobin 11.0 g/dL (12.2-16.2) Hematocrit 33.0 % (36.0-46.0) Mean Corpuscular Volume 80.7 fL (80.0-100.0) Mean Corpuscular Hemoglobin 27.0 pg (28.0-32.0) Mean Corpuscular Hemoglobin Concent 33.4 g/dL (32.0-36.0) Red Cell Distribution Width 13.5 % (11.8-14.3) Platelet Count 285 10^3/uL (140-450) Mean Platelet Volume 8.7 fL (6.9-10.8) Neutrophils (%) (Auto) 68.6 % (37.0-80.0) Lymphocytes (%) (Auto) 16.0 % (10.0-50.0) Monocytes (%) (Auto) 11.8 % (0.0-12.0) Eosinophils (%) (Auto) 3.0 % (0.0-7.0) Basophils (%) (Auto) 0.6 % (0.0-2.0) Neutrophils # (Auto) 5.5 10 ^3/uL (1.6-8.6) Lymphocytes # (Auto) 1.3 10 ^3/uL (0.4-5.4) Monocytes # (Auto) 0.9 10 ^3/uL (0-1.3) Eosinophils # (Auto) 0.2 10 ^3/uL (0-0.8) Basophils # (Auto) 0.1 10 ^3/uL (0-0.2) Nucleated Red Blood Cells 0.0 % Sodium Level 141 mmol/L (136-145) Potassium Level 3.4 mmol/L (3.5-5.1) Chloride Level 104 mmol/L (98-107) Carbon Dioxide Level 27 mmol/L (20-31) Anion Gap 10 (5-15) Blood Urea Nitrogen 10 mg/dL (9-23) Creatinine 0.67 mg/dL (0.550-1.02) Glomerular Filtration Rate Calc 104 mL/min (>90) BUN/Creatinine Ratio 14.9 (10.0-20.0) Serum Glucose 84 mg/dL (74-106) Calcium Level 8.9 mg/dL (8.7-10.4) Influenza Type A Antigen Negative (Negative) Influenza Type B Antigen Negative (Negative) SARS-CoV-2 Antigen (Rapid) Negative (NEGATIVE) Prothrombin Time 10.6 sec (9.3-11.8) Prothrombin Time INR 1.00 (0.9-1.15) Activated Partial Thromboplast Time 32.0 SEC (24.5-34.5) Phosphorus Level 3.4 mg/dL (2.4-5.1) Magnesium Level 2.1 mg/dL (1.6-2.6) Total Bilirubin 0.5 mg/dL (0.2-1.0) Aspartate Amino Transferase (AST) 18 U/L (13-40) Alanine Aminotransferase (ALT) 12 U/L (7-40) Alkaline Phosphatase 74 U/L (46-116) Total Protein 8.3 g/dL (5.7-8.2) Albumin 4.5 g/dL (3.2-4.8) Triglycerides Level 64 mg/dL (< 150) Cholesterol Level 159 mg/dL (< 200) LDL Cholesterol 68 mg/dL (< 100) HDL Cholesterol 69 mg/dL (40-59) Vitamin B12 Level 896 pg/mL (211-911) Vitamin D 25-Hydroxy 53.8 ng/mL (30.0-100) Thyroid Stimulating Hormone (TSH) 1.14 uIU/mL (0.55-4.78) Lactic Acid Level 1.0 mmol/L (0.4-2.0) Test 02/23/25 14:20 02/23/25 12:29 02/23/25 11:13 Direct Bilirubin 0.1 mg/dL (<0.3) Troponin I High Sensitivity 24 ng/L (</=34) Urine Color Yellow (Yellow) Urine Clarity Clear (Clear) Urine pH 6.0 (5.0-9.0) Urine Specific Abbott 1.023 (1.001-1.035) Urine Protein Trace (Negative) Urine Ketones 1+ (Negative) Urine Blood 1+ /uL (Negative) Urine Nitrite Negative (Negative) Urine Bilirubin Negative (Negative) Urine Urobilinogen 2 mg/dL (Negative) Urine Leukocyte Esterase 1+ /uL (Negative) Urine RBC 8 /hpf (0 - 4) Urine Microscopic WBC 5 /HPF (0-5) Urine Squamous Epithelial Cells Few /hpf (<5) Urine Bacteria None seen /hpf (None Seen) Urine Mucus Few (None Seen) Urine Yeast (Budding) Occasional /hpf (None Urine Glucose Normal mg/dL (Normal) Urine Opiates Screen Neg (NEGATIVE) Urine Fentanyl Screen Neg (NEGATIVE) Urine Barbiturates Screen Neg (NEGATIVE) Urine Phencyclidine Screen Neg (NEGATIVE) Urine Amphetamines Screen Neg (NEGATIVE) Urine Benzodiazepines Screen Neg (NEGATIVE) Urine Cocaine Screen Neg (NEGATIVE) Urine Cannabinoids Screen Neg (NEGATIVE) Hemoglobin A1c 5.0 % A1C (<5.7) B-Type Natriuretic Peptide 46.15 pg/mL (0-100) Lipase 23 U/L (12-53) Other Laboratory Tests 02/25/25 05:14 Brief Hx & Hospital Course: This is a 54-year-old female with past medical history of depression who presents with five days of epigastric abdominal pain associated with nausea and multiple episodes of non-bloody clear vomiting, last episode yesterday. Also reported intermittent non bloody iarrhea. She reports lightheadedness and generalized weakness without syncope. No sick contacts or dietary changes. She had a prior hysterectomy and in outside meds reconciliation aripiprazole showed up, and occasionally takes tramadol for headaches. She denies smoking, alcohol, or drug use. CBC: Leukocytosis 11.4 with neutrophilia, potassium 3.4, lipase with a normal limit, urinalysis revealed leukocyte esterase 2+, WBC 5. UDS negative, TSH 1.14. Negative for COVID-19 and influenza. chest x-ray trace bilateral pleural effusion. Ultrasound of the chest trace bilateral pleural effusion. CT abdominal pelvis-No acute abdominal or pelvic finding. Patient was treated conservatively pantoprazole and sucralfate for gastritis, also was on ceftriaxone for UTI. Patient's symptoms improved. Patient complained of neck pain, x-ray cervical spine revealed-Multilevel degenerative changes most pronounced C4-C5 through C6-C7 causing moderate neural foraminal and spinal canal stenosis. Patient is being discharged home with the Keflex for 5 days and also pantoprazole and sucralfate.. Patient was advised to follow up with the PCP/DC clinic. Patient was hemodynamically stable on discharge. All questions answered. General examination- no acute distress HEENT- PEERLA, no acute nasal discharge Cardiovascular- S1-S2 audible, rate and rhythm regular, no murmur Respiratory- CTAB, no wheeze or rhonchi Gastrointestinal-epigastric tenderness positive, bowel sound+. Nondistended Musculoskeletal-no acute joint swelling or tenderness or redness Lower extremity- no leg edema Neurological- cranial nerves intact, no acute dysarthria or dysphagia Psychiatry- denies depression or SI or HI Skin- no acute rash or purpura Plan of care discussed with Dr. Valdivia Operations or Procedures [place] [address] Ph: [phone] DIAGNOSTIC IMAGING Diagnostic Imaging Report : [id number] Signed PATIENT: LAURA MIRANDA ACCT: [id number] UNIT: [id number] : 1970 LOC: ER ROOM / BED: / AGE / SEX: 54 / F ADM STATUS: REG ER SERVICE 1101 ORDERING PHYSICIAN: SHAHID GALARZA MD PROCEDURE(s): CXR1 - CHEST XRAY 1 VIEW REASON: chest pain ORDER NUMBER(s): [id number], ACCESSION NUMBER(s): [id number] CLINICAL HISTORY: Chest pain. TECHNIQUE: Two frontal views of the chest were obtained. COMPARISON: None available. FINDINGS: PLEURA/LUNGS: Questionable trace bilateral pleural effusions associated with subsegmental atelectasis at the lung bases. No pneumothorax. No consolidation or belinda pulmonary edema. MEDIASTINUM/OTHER: Normal heart size and mediastinal contours. BONES: No acute osseous abnormality. Osseous structures are demineralized. IMPRESSION: Questionable trace bilateral pleural effusions associated with subsegmental atelectasis at the lung bases. ATED BY: EUSEBIO MCNEAL MD DICTATED DATE/TIME: 02/23/25 1146 SIGNED BY: EUSEBIO MCNEAL MD SIGNED DATE/TIME: 02/23/25 1146 CC: [place] [id number] Ph: [phone] DIAGNOSTIC IMAGING Diagnostic Imaging Report : [id number] Signed PATIENT: MIL MIRANDA CACCT: [id number] UNIT: [id number] : 1970 LOC: OVERFLOW ROOM / BED: 1022-ER / A AGE / SEX: 54 / F ADM STATUS: ADM IN SERVICE 153 ORDERING PHYSICIAN: FORTUNATO TURCIOS RESIDENT PROCEDURE(s): ABPLIV - CT AB PEL WITH IV CON ONLY REASON: ABDOMINAL PAIN AND LEUKOCYTOSIS, r/o apendictis ORDER NUMBER(s): [id number], ACCESSION NUMBER(s): [id number] EXAM: CT CT AB PEL WITH IV CON ONLY History: ABDOMINAL PAIN AND LEUKOCYTOSIS, r/o apendictis COMPARISON: None TECHNIQUE: Multidetector spiral CT of the abdomen and pelvis was performed from lung bases to pubic symphysis. Intravenous contrast was administered during this examination. Portal venous imaging was obtained. Axial, coronal and sagittal multiplanar reformats were performed by the technologist on a separate workstation. Radiation Dose : 1. Abdomen/Pelvis: CTDIvol 7.06mGy, DLP 341.06 mGy*cm. CONTRAST: Type of contrast: Omnipaque 350 Contrast injected: 100 ml FINDINGS: Lung Bases: No acute or significant lung base finding. Normal heart size. No pleural or pericardial effusion. Liver: The liver is normal in size. No focal lesions. Normal hepatic vascular enhancement. Gallbladder and Biliary Tree: Unremarkable Spleen: Unremarkable Pancreas: The pancreas is normal in appearance without focal lesions or abnormal enhancement. Adrenal Glands: Unremarkable Kidneys: No hydronephrosis. Bladder: Unremarkable Bowel: The stomach is grossly normal in appearance. Small bowel and colon are normal in caliber and distribution. Normal appendix is visualized in the right lower quadrant without findings of appendicitis. Ascites: Absent Lymphadenopathy: No mesenteric, retroperitoneal or periportal lymphadenopathy. Abdominal Wall and Mesentery: Unremarkable. Vasculature: The visualized abdominal aorta is normal in size and caliber. Abdominal and pelvic vessels demonstrate normal enhancement. Pelvic Organs: Unremarkable Musculoskeletal: No aggressive focal bony lesions, acute fractures or dislocation. IMPRESSION: No acute abdominal or pelvic finding. Radiation optimization: All CT scans at this facility use at least one of these dose optimization techniques: automated exposure control mA and/or kV adjustment per patient size (includes targeted exams where dose is matched to clinical indication) or iterative reconstruction. ATED BY: EUSEBIO MCNEAL MD DICTATED DATE/TIME: 02/24/25 1718 SIGNED BY: EUSEBIO MCNEAL MD SIGNED DATE/TIME: 02/24/251717 CC: [place] [id number] Ph: [phone] DIAGNOSTIC IMAGING Diagnostic Imaging Report : [id number] Signed PATIENT: LAURA MIRANDA ACCT: [id number] UNIT: [id number] : 1970 LOC: OVERFLOW ROOM / BED: 1022-ER / A AGE / SEX: 54 / F ADM STATUS: ADM IN SERVICE 1536 ORDERING PHYSICIAN: FORTUNATO TURCIOS RESIDENT PROCEDURE(s[facility] REASON: left pleural effusion ORDER NUMBER(s): [id number], ACCESSION NUMBER(s): [id number] US CHEST ULTRASOUND COMPARISON: XY CHEST XRAY 1 VIEW on DOS: 02/23/25 INDICATION: left pleural effusion TECHNIQUE: Targeted ultrasound exam of the bilateral chest was performed. FINDINGS: Trace bilateral pleural effusions. IMPRESSION: Trace bilateral pleural effusions. ATED BY: EUSEBIO MCNEAL MD DICTATED DATE/TIME: 02/23/25 1657 SIGNED BY: EUSEBIO MCNEAL MD SIGNED DATE/TIME: 02/23/251656 CC: [place] [address] Ph: [phone] DIAGNOSTIC IMAGING Diagnostic Imaging Report : [id number] Signed PATIENT: MIL MIRANDA CACCT: [id number] UNIT: [id number] : 1970 LOC: EAST ROOM / BED: 0251 / B AGE / SEX: 54 / F ADM STATUS: ADM IN SERVICE 0834 ORDERING PHYSICIAN: FELECIA CALLAHAN RESIDENT PROCEDURE(s): CERV2 - CERVICAL SPINE 3V REASON: NECK PAIN ORDER NUMBER(s): [id number], ACCESSION NUMBER(s): [id number] INDICATION: NECK PAIN COMPARISON: None TECHNIQUE: 3 views of the cervical spine were obtained. FINDINGS: The cervical vertebral alignment is normal. The predental space is normal. Multilevel degenerative changes most pronounced C4-C5 through C6-C7 causing moderate neural foraminal and spinal canal stenosis. No acute fracture, vertebral compression deformity or aggressive osseous lesions. The imaged lung apices are unremarkable. IMPRESSION: No acute fracture. ATED BY: EUSEBIO MCNEAL MD DICTATED DATE/TIME: 02/25/25 120 SIGNED BY: EUSEBIO MCNEAL MD SIGNED DATE/TIME: 02/25/25 1204 CC: Condition at Discharge: Stable Final Diagnosis/Problems List # intractable abdominal pain with nausea and vomiting likely due to acute gastroenteritis # suspected acute gastritis # UTI # depression # trace bilateral pleural effusion # neck pain likely due to cervical spine stenosis Discharge Disposition: Home Discharge Instruct/Medications Diet: Regular Activity: No Restrictions, As Tolerated Follow Up/Referral: DC clinic PCP Medications: As above Scheduled Cephalexin (Keflex Capsule), 1 CAP PO QID Dicyclomine Hcl (Bentyl Capsule), 1 CAP PO TID Pantoprazole Sodium Sesquihydr (Pantoprazole Sodium), 40 MG PO DAILY Sucralfate (Carafate), 1 GM PO BID Discharge Statement: "Patient was advised to return to the ER or call 911 if any headaches, dizziness, shortness of breath, chest pain, abdominal pain, bleeding, fevers, or worsening of medical condition. Patient was counseled about treatment plan, medications, possible side effects, patientverbalized understanding. All questions were answered to the best of my ability. This discharge took greater then 30 minutes in planning, reviewing documentation, counseling the patient, and discussing with other team members." ASSESSMENT ASSESSMENT Assessment Acute gastroenteritis Acute gastritis Visit Coding STANDARD RES Billing Provider: TRACEE VALDIVIA MD Date of Service if different f: Feb 25, 2025 Common Visit Codes: 42591-KYF/OBS DISCH DAY >30min FELECIA CALLAHAN RESIDENT Feb 25, 2025 14:57
[2025-02-25] MEDS ORDERED: CEPH250C PO (14:59)
== END 2025-02-25 15:06 | disposition home or self-care (01) | DRG 249 ==
LOC: ER 10:05 → EDBD 10:05 → OVERFLOW 15:36 → EAST 02-24 21:10
PROVIDERS: ADMIT Internal Medicine Geriatric Medicine; ATTEND Internal Medicine Geriatric Medicine
DX: A08.4 Viral intestinal infection, unspecified (principal); J90 Pleural effusion, not elsewhere classified; N12 Tubulo-interstitial nephritis, not specified as acute or chronic; F32.A Depression, unspecified; J44.9 Chronic obstructive pulmonary disease, unspecified; E87.6 Hypokalemia; Z20.822 Contact with and (suspected) exposure to COVID-19; K29.00 Acute gastritis without bleeding; M48.02 Spinal stenosis, cervical region; Z90.710 Acquired absence of both cervix and uterus
CPT/HCPCS: 36415; 71045; 72040; 74177; 76604; 80048; 80053; 80061; 80076; 80307; 81001; 82306; 82607; 83036; 83605; 83690; 83735; 83880; 84100; 84443; 84484; 85025; 85610; 85730; 87040; 87081; 87086; 87426; 87804; 93005; 99291; G0378; J2470